=== PATIENT | female | born 2000 | race Caucasian/White ===

== ENCOUNTER 2018-02-06 13:55 | Observation (INO) | payer OTHER ==
[~2018-02-06] VITALS: Ht 152.4 cm; Wt 54.9 kg
[2018-02-06] MEDS ORDERED: PNV11TAB3 PO (14:27)
[2018-02-06] MEDS ORDERED: TERBUTALINE 1 MG/ML VIAL SUBQ SCH (14:30)
[2018-02-06] MEDS ORDERED: TERBUTALINE 1 MG/ML VIAL SUBQ ONE (14:39)
[2018-02-06 15:05] VITALS: BP 98/58
[2018-02-06] MEDS: TERBUTALINE 2.5 MG TAB PO SCH (18:09)
[2018-02-06] MEDS ORDERED: TERBUTALINE 2.5 MG TAB ONE ×2 (18:11→23:55)
[2018-02-06] MEDS: LACTATED RINGERS 1,000 ML IV SCH ×2 (20:05→20:09)
[2018-02-07] MEDS: LACTATED RINGERS 1,000 ML IV SCH (05:00)
[2018-02-07] MEDS: TERBUTALINE 2.5 MG TAB PO SCH ×2 (05:52→11:53)
[2018-02-07] MEDS ORDERED: TERBUTALINE 2.5 MG TAB ONE ×2 (05:56→11:59)
--- NOTE | 2018-02-07 12:04 | NUR ---
PATIENT HAS BEEN SCREENED AND CATEGORIZED LOW NUTRITION RISK. PATIENT WILL BE SEEN WITHIN 7 DAYS OF ADMISSION. 02/13/18 MOHAMUD HERNANDEZ MBA, RD
== END 2018-02-07 16:05 | disposition home or self-care (01) ==
LOC: MLD 13:55 → EDSEX 13:55
PROVIDERS: ADMIT Obstetrics & Gynecology; ATTEND Obstetrics & Gynecology
DX: O26.893 Other specified pregnancy related conditions, third trimester (principal); R10.30 Lower abdominal pain, unspecified; Z3A.30 30 weeks gestation of pregnancy
CPT/HCPCS: 36415; 51702; 76805; 81000; 85379; 86870; 86886; 96372; G0378; J3105; J7120; Q0092